=== PATIENT | female | born 1935 | race Two or more races ===

== ENCOUNTER 2017-05-22 06:19 | Observation (INO) | payer MEDICARE ==
--- NOTE | 2017-05-18 09:16 | Diagnostic Imaging Report ---
Indication: Dyspnea Comparison: 06/16/16 2 views of the chest obtained. No definite infiltrate or pulmonary vascular congestion identified. The heart is enlarged. The aorta is mildly enlarged consistent with atherosclerotic vascular disease. Surgical clips noted in the axilla bilaterally. The bones are osteopenic. Impression: No acute disease
[~2017-05-22] VITALS: Ht 157.5 cm; Wt 81.6 kg
[2017-05-22] VITALS (9 sets, daily range): BP systolic 114–160; BP diastolic 53–86
[~2017-05-22 06:19] MED LIST: NKM
[2017-05-22] MEDS ORDERED: Kenalog-10 5ml Inj ONE (07:11)
[2017-05-22] MEDS ORDERED: Lidocaine 1% Plain 30 ml INJ ONE (07:11)
[2017-05-22] MEDS ORDERED: Bacitracin 50000 Units Vial ONE (07:12)
[2017-05-22] MEDS ORDERED: Bupivacaine 0.25% Inj 30ml INJ ONE (07:12)
[2017-05-22] MEDS ORDERED: Lidocaine 1% 10mg/ml/Epi 0.005mg/ml 30ml vial INJ ONE (07:12)
--- NOTE | 2017-05-22 07:29 | Pre-Procedure Note/Attestation ---
Pre-Procedure Note/Attestation Complete Prior to Procedure Planned Procedure: left Procedure Narrative: Removal of hardware left ankle Indications for Procedure Pre-Operative Diagnosis: Painful hardware left ankle Attestation I attest that I discussed the nature of the procedure; its benefits; risks and complications; and alternatives (and the risks and benefits of such alternatives ), prior to the procedure, with the patient (or the patient's legal jewelry sales representative). I attest that, if there was a reasonable possibility of needing a blood transfusion, the patient (or the patient's legal jewelry sales representative) was given the [facility] standardized written summary, pursuant to the [place] Blood Safety Act ([place] Health and Safety Code # 1645, as amended). I attest that I re-evaluated the patient just prior to the surgery and that there has been no change in the patient's H&P, except as documented below: LEONA KAUR May 22, 2017 07:29
[2017-05-22] MEDS ORDERED: Propofol 10mg/ml 20ml IV ONE (07:30)
[2017-05-22] MEDS ORDERED: Ketorolac 30mg Inj ONE (07:30)
[2017-05-22] MEDS ORDERED: LR 1000ml ONE (07:30)
[2017-05-22] MEDS ORDERED: Sterile Water Irrig 1000ml IRRIG ONE (07:30)
[2017-05-22] MEDS ORDERED: Esmolol 100mg/10ml Inj ONE ×2 (07:30)
[2017-05-22] MEDS ORDERED: fentaNYL 100 mcg/2 mL IV ONE (07:30)
[2017-05-22] MEDS ORDERED: NS Irrig 1000ml ONE (07:30)
--- NOTE | 2017-05-22 07:31 | Anethesia Preoperative Eval ---
Anesthesia Pre-op PMH/ROS General Date of Evaluation: May 22, 2017 Time of Evaluation: 07:00 Anesthesiologist: Maribel ASA Score: ASA 3 Mallampati Score Class I : Soft palate, uvula, fauces, pillars visible Class II: Soft palate, uvula, fauces visible Class III: Soft palate, base of uvula visible Class IV: Only hard plate visible Mallampati Classification: Class II Surgeon: NATASHA Diagnosis: LEFT ANKLE HARDWARE Anesthesia History: none Family History: no anesthesia problems Allergies: Coded Allergies: CODEINE (Verified Allergy, Unknown, 05/22/17) DOES NOT REMEMBER REACTION PENICILLINS (Verified Allergy, Unknown, 12/31/15) Medications: see eMAR Past Medical History Cardiovascular: Reports: HTN Musculoskeletal/Integumentary: Reports: OA, other - BREAST CA Other: obesity Anesthesia Pre-op Phys. Exam Physician Exam Last Vital Signs Date Time Temp Pulse Resp B/P (MAP) Pulse Ox O2 Delivery O2 Flow Rate FiO2 05/22/17 06:43 97.6 76 20 142/86 96 Room Air Constitutional: NAD Cardiovascular: RRR Respiratory: CTA Airway Exam Mallampati Score: Class I ROM: full Anesthesia Pre-op A/P Risk Assessment & Plan Assessment: ASA 3 Plan: Carmelita Salter M.D. May 22, 2017 07:31
[2017-05-22] MEDS ORDERED: fentaNYL 100 mcg/2 mL IV PRN (07:45)
[2017-05-22] MEDS ORDERED: Hydromorphone 0.5mg/0.5ml inj IVP PRN (07:45)
[2017-05-22] MEDS ORDERED: Ketorolac 30mg Inj IV PRN (07:45)
--- NOTE | 2017-05-22 08:43 | Brief Operative Note ---
Immediate Post Operative Note Operative Note Pre-op Diagnosis: Painful hardware left ankle Procedure: Removal of hardware left ankle Post-op Diagnosis: same as pre-op Surgeon: Anatoliy Anesthesiologist: Maribel Anesthesia: MAC Specimen: yes Complications: none Condition: stable Fluids: saline Estimated Blood Loss: minimal Drains: none Implant(s) used?: No LEONA KAUR May 22, 2017 08:43
--- NOTE | 2017-05-22 09:19 | 48 Hour Post Anesthesia Eval ---
Post Anesthesia Evaluation Date of Evaluation: May 22, 2017 Time of Evaluation: 09:15 Blood Pressure Systolic: 119 Pulse Rate: 88 Respiratory Rate: 18 Temperature (Fahrenheit): 97.9 O2 Sat by Pulse Oximetry: 98 Airway: patent Nausea: No Vomiting: No Pain Intensity: 1 Hydration Status: adequate Mental Status/LOC: patient returned to baseline Follow-up care needed: N/A Carmelita López M.D. May 22, 2017 09:19
--- NOTE | 2017-05-22 09:21 | Immediate Post-Op Evaluation ---
Immediate Post-Op Evalulation Immediate Post-Op Evalulation Date of Evaluation: May 22, 2017 Time of Evaluation: 09:49 IV Fluids: 500 Blood Pressure Systolic: 139 Blood Pressure Diastolic: 64 Pulse Rate: 91 Respiratory Rate: 18 O2 Sat by Pulse Oximetry: 100 Temperature (Fahrenheit): 97.9 Pain Score (1-10): 1 Nausea: No Vomiting: No Complications none Patient Status: awake Hydration Status: adequate Drug: cefazolin 2 g Given Within 1 Hr of Incision: Yes Carmelita López M.D. May 22, 2017 09:21
[2017-05-22] MEDS ORDERED: traMADol 50mg tab ORAL ONE (13:30)
[2017-05-22] MEDS ORDERED: traMADol 50mg tab ORAL PRN (15:01)
[2017-05-22] MEDS ORDERED: Norco 5mg/325mg tab ORAL PRN ×2 (17:45)
[2017-05-22] MEDS ORDERED: Zolpidem 5mg tab ORAL PRN (17:45)
[2017-05-22] MEDS ORDERED: Mylanta II UD 30ml ORAL PRN (17:45)
--- NOTE | 2017-05-22 21:45 | History and Physical Report ---
DATE OF ADMISSION: 05/22/2017 PODIATRIC HISTORY AND PHYSICAL HISTORY OF PRESENT ILLNESS: This is an 82-year-old patient who is admitted today for an outpatient procedure of her left ankle. The patient has been complaining of pain for the past month from the left ankle. Evaluation at the office was performed couple weeks ago and it was noted that a hardware inserted into her left ankle was protruding and irritating the deep tissue. The patient was complaining of pain with touch over the medial aspect of the left rearfoot and ankle. The patient was consulted on removing the painful hardware. PAST MEDICAL HISTORY: Remarkable for arthritis, left arm radiculopathy, cataract, and left ankle fracture which was fixated with reduction and internal fixation back in 1979. MEDICATIONS: Cozaar, vitamin B2, Breo Ellipta inhaler. ALLERGIES: Penicillin and codeine. PODIATRIC PHYSICAL EXAMINATION: VASCULAR STATUS: Dorsalis pedis and posterior tibial arteries are faintly palpable measuring 1/4 bilaterally. The capillary filling time is less than 5 seconds to all digits bilaterally. Ankle edema is noted bilaterally, nonpitting. Homans sign is negative. Mild varicosities are noted bilateral lower extremities. NEUROLOGICAL EXAMINATION: Reflexes of Achilles and patellar are reduced measuring 1/4 bilaterally. Sensation, proprioception, and vibration sensation all intact bilaterally. Babinski is negative. Clonus is absent. MUSCULOSKELETAL EXAMINATION: Reveals reduced range of motion of bilateral ankle, subtalar midtarsal joints, joint range of motion at the level of the digits is also reduced. The left foot exhibits severe pes planovalgus with collapse of the arch and severe pronation on the left. Nonreducible hammertoe deformities digits 2 through 5 are noted bilaterally. Mild bunions are noted bilaterally. DERMATOLOGICAL EXAMINATION: Reveals scars, which are hypertrophic and keloid over the medial and lateral aspects of the left ankle and rearfoot. The medial scar is inflamed and very painful to palpation. Erythema is noted over the medial aspect of the ankle. All nails are present and mycotic bilaterally. Minimal ulceration is noted over the medial aspect of the left rearfoot. ASSESSMENT: Painful hardware status post fracture left ankle. PLAN: The patient is admitted today for an outpatient removal of left ankle hardware. Risks and complications were discussed with the patient and daughter. Postoperative instructions were given. Bharat Cope D.P.M. DR: SENA JOB#: [id number] CC:
[2017-05-22] MEDS ORDERED: LOSARTAN POTASS50 MG ORAL (22:29)
[2017-05-22] MEDS ORDERED: VITAMIN D400 INTLU ORAL (22:29)
[2017-05-22] MEDS ORDERED: BREO ELLIPTA 21 EACH IH (22:29)
[2017-05-23 04:00] VITALS: BP 158/73
[2017-05-23 07:48] VITALS: BP 155/74
[2017-05-23 08:00] VITALS: BP 135/59
[2017-05-23] MEDS ORDERED: Vitamin D 1000 IU Tab ORAL SCH (09:00)
[2017-05-23] MEDS ORDERED: Breo Ellipta 200/25mcg-14 dose INH SCH (09:00)
[2017-05-23] MEDS ORDERED: Losartan 50mg tab ORAL SCH (09:00)
--- NOTE | 2017-05-23 09:28 | General Progress Note ---
Assessment/Plan Assessment/Plan removal of hardware arthritis hypertension asthma obesity PLAN dc home tramadol for pain resume home meds home health care noted and reviewed d/w patient impression, plan, and exam edited and reviewed in detail care discussed with RN Subjective Allergies: Coded Allergies: CODEINE (Verified Allergy, Unknown, 05/22/17) DOES NOT REMEMBER REACTION Dairy (Verified Allergy, Unknown, 05/22/17) EGG (Verified Allergy, Unknown, 05/22/17) PENICILLINS (Verified Allergy, Unknown, 12/31/15) Subjective post op hardware removal has some pain Objective Last 24 Hour Vital Signs Date Time Temp Pulse Resp B/P (MAP) Pulse Ox O2 Delivery O2 Flow Rate FiO2 05/23/17 08:00 97.9 80 18 135/59 96 Room Air 05/23/17 07:48 98.4 80 18 155/74 96 Room Air 05/23/17 04:00 98.4 79 18 158/73 96 Room Air 05/22/17 23:26 98.4 91 20 136/67 95 Room Air 05/22/17 19:58 99.4 104 20 160/73 97 Room Air 05/22/17 18:51 98.6 96 20 155/76 95 Room Air 05/22/17 14:13 97.5 05/22/17 09:37 74 19 137/78 96 Room Air Height (Feet): 5 Height (Inches): 2.00 Weight (Pounds): 180 Objective WDWN NAD clear breath sounds bilaterally without rhonchi or wheeze [id number] without MRG NABS nontender no HSM no CC; some edema nonfocal unsteady dressed foot MARCOS BRANNON May 23, 2017 09:28
[2017-05-23] MEDS ORDERED: TRAMADOL HCL50 MG ORAL (10:08)
[2017-05-23] MEDS ORDERED: NORCO 5-325 TA1 EACH ORAL (10:08)
[2017-05-23 11:58] VITALS: BP 180/90
[2017-05-23 12:00] VITALS: BP 170/80
[2017-05-23 12:43] VITALS: BP 160/70
--- NOTE | 2017-05-26 10:15 | Operative Note - Dictated ---
DATE OF OPERATION: 05/22/2017 SURGEON: Bharat Cope M.D. ANESTHESIOLOGIST: Carmelita López M.D. ANESTHESIA: Local standby. PREOPERATIVE DIAGNOSIS: Painful hardware, left ankle. POSTOPERATIVE DIAGNOSIS: Painful hardware, left ankle. PROCEDURE PERFORMED: Removal of K-wire, left ankle. DESCRIPTION OF THE OPERATION: The patient was brought to the operating room and was placed on the operating room table in the supine position. IV sedation was administered by the anesthesiologist. Local anesthesia consisting of 0.25% Marcaine plain total of 20 mL was administered to the left ankle and ankle tourniquet was applied to the left lower extremity. The foot was prepped and draped in the usual sterile manner. An Esmarch was utilized to exsanguinate the blood and the left ankle tourniquet was inflated to 250 mmHg. Attention was then directed to the medial aspect of the left rearfoot where an approximately 3 cm linear skin incision was centered over an existing scar. The incision was deepened utilizing sharp and blunt dissection with care being taken to cauterize and ligate all bleeders. The incision was then dissected down to the distal aspect of the medial malleolus utilizing free air. The soft tissue and periosteum were freed from the distal aspect of the malleolus. At this point, a FluoroScan was utilized to identify the protruding K-wire and a hemostat was then utilized to clamp the K-wire and the K-wire was removed in total. The wound was then copiously flushed utilizing sterile saline. The subcutaneous tissue was then reapproximated utilizing 4-0 Vicryl in a buried knot type stitch. The skin was then reapproximated utilizing 4-0 nylon in a simple interrupted type stitch. The wound was then dressed utilizing an Adaptic 4 x 4 gauze and 3-inch Flash. The left ankle tourniquet was deflated and vascular supply was noted to all digits of the left foot. The patient tolerated the procedure well and left the operating room to recovery room with all vital signs stable. Bharat Cope D.P.M. DR: SENA JOB#: [id number] CC: EVY
== END 2017-05-23 14:00 | disposition home or self-care (01) ==
LOC: SUR 06:19 → 4E 06:20 → SUR 18:46 → 4E 05-23 14:00 → SUR 05-23 14:00
DX: T85.848A Pain due to other internal prosthetic devices, implants and grafts, initial encounter (principal); M19.90 Unspecified osteoarthritis, unspecified site; Z87.81 Personal history of (healed) traumatic fracture; Z88.0 Allergy status to penicillin; Z88.6 Allergy status to analgesic agent; T84.127A Displacement of internal fixation device of bone of left lower leg, initial encounter; L91.0 Hypertrophic scar; M20.42 Other hammer toe(s) (acquired), left foot; M20.41 Other hammer toe(s) (acquired), right foot; M21.072 Valgus deformity, not elsewhere classified, left ankle; M21.42 Flat foot [pes planus] (acquired), left foot; M21.6X2 Other acquired deformities of left foot; I83.93 Asymptomatic varicose veins of bilateral lower extremities; I10 Essential (primary) hypertension; J45.909 Unspecified asthma, uncomplicated; E66.9 Obesity, unspecified; Z68.32 Body mass index [BMI] 32.0-32.9, adult; G43.909 Migraine, unspecified, not intractable, without status migrainosus; Z85.3 Personal history of malignant neoplasm of breast; Z90.710 Acquired absence of both cervix and uterus; E56.9 Vitamin deficiency, unspecified; M54.12 Radiculopathy, cervical region; M25.569 Pain in unspecified knee; M71.20 Synovial cyst of popliteal space [Baker], unspecified knee; N28.9 Disorder of kidney and ureter, unspecified; R60.0 Localized edema
CPT/HCPCS: 20680; 71020; 97161; G0378; G8978; G8979; J0360; J0690; J1885; J2704; J3010; J3490; J7120

== ENCOUNTER 2017-08-04 10:49 | Inpatient (IN) | payer MEDICARE ==
[~2017-08-04] VITALS: Ht 157.5 cm; Wt 92.5 kg
[~2017-08-04 10:49] MED LIST changes: +BREO ELLIPTA 21 EACH IH; +LOSARTAN POTASS50 MG ORAL; +NORCO 5-325 TA1 EACH ORAL; +TRAMADOL HCL50 MG ORAL; +VITAMIN D400 INTLU ORAL
[2017-08-04] MEDS ORDERED: BREO ELLIPTA 11 EACH IH (13:29)
[2017-08-04] MEDS ORDERED: Albuterol ud Inhalation HHN PRN (15:30)
[2017-08-04 16:00] VITALS: BP 150/70
[2017-08-04] MEDS: guaiFENesin DM 100mg/5ml ORAL PRN (17:42)
[2017-08-04] MEDS ORDERED: TraZODone HCl 25 mg tablet ORAL PRN (19:00)
[2017-08-04 20:00] VITALS: BP 175/85
--- NOTE | 2017-08-04 20:01 | History & Physical ---
History and Physical History & Physicial 82 year old female with worsening lymphedema and hypertension out of control. Patient with worsening ability to walk and manage at home and now admitted for further observation, podiatry evaluation and trial at IV diuresis. Patient notes some shortness of breath, pain, difficulty with ambulation, pain, and cough. Patient with recent foot surgery. she has been failing to thrive and unable to care for herself at home. Patient care reviewed and discussed with the daughter. no fevers or chills recently. PMH foot surgery lymphedema arthritis Asthma hypertension ROS unsteady gait; uses walker MEDS/ALLERGIES: reviewed PHYSICAL EXAM Sp02 EP Interpretation: reviewed, normal General Appearance: normal inspection, well appearing, no apparent distress, alert Head: normocephalic, atraumatic Eyes: bilateral eye normal inspection ENT: normal ENT inspection, no angioedema, normal voice Neck: normal inspection, full range of motion, supple, no meningismus, carotid 2+ Respiratory: decreased breath sounds, wheezing scattered without rhonchi Cardiovascular #1: regular rate, rhythm, no murmur without MRG Gastrointestinal: non tender, soft, non-distended, no guarding, no rebound Musculoskeletal: gait/station normal, no calf tenderness, significant edema bilaterally Neurologic: alert, oriented x3, responsive, nonfocal but weak IMPRESSION lymphedema hypertension poorly controlled Asthma pain cough poor mobility PLAN check venous US podiatry evaluation check labs PT lasix diuresis resume home meds titrated BP control impression, plan, and exam edited and reviewed in detail care discussed with MARCOS SANCHEZ Aug 04, 2017 20:01
[2017-08-04] MEDS: Heparin 5000 units/ml inj SUBQ SCH (20:10)
[2017-08-05] VITALS (7 sets, daily range): BP systolic 140–184; BP diastolic 80–98
[2017-08-05 07:13] LABS: EOSINOPHILS % (AUTO) 4.4 % (0.0-3.0); MEAN CORPUSCULAR HEMOGLOBIN 27.9 PG (27.0-31.0); MEAN CORPUSCULAR HGB CONC 31.9 G/DL (32.0-36.0); MEAN CORPUSCULAR VOLUME 87 FL (80-99); MEAN PLATELET VOLUME 8.7 FL (6.5-10.1); MONOCYTES % (AUTO) 7.8 % (1.0-10.0); NEUTROPHILS % (AUTO) 63.8 % (45.0-75.0); PLATELET COUNT 165 K/UL (150-450); RED BLOOD COUNT 4.44 M/UL (4.20-5.40); RED CELL DISTRIBUTION WIDTH 12.5 % (11.6-14.8); WHITE BLOOD COUNT 6.8 K/UL (4.8-10.8)
[2017-08-05 07:18] LABS: ANION GAP 5 mmol/L (5-15); CALCIUM 8.4 MG/DL (8.5-10.1); CARBON DIOXIDE 32 MMOL/L (21-32); CHLORIDE 106 MMOL/L (98-107); POTASSIUM 3.2 MMOL/L (3.5-5.1); SODIUM 143 MMOL/L (136-145)
[2017-08-05] MEDS ORDERED: traMADol 50mg tab ORAL PRN (07:30)
--- NOTE | 2017-08-05 08:45 | General Progress Note ---
Assessment/Plan Assessment/Plan IMPRESSION lymphedema hypertension poorly controlled Asthma pain cough poor mobility PLAN check venous US podiatry evaluation called check labs PT lasix diuresis and monitor replace K resume home meds titrated BP control impression, plan, and exam edited and reviewed in detail care discussed with RN Subjective Allergies: Coded Allergies: CODEINE (Verified Allergy, Unknown, 05/22/17) DOES NOT REMEMBER REACTION Dairy (Verified Allergy, Unknown, 05/22/17) EGG (Verified Allergy, Unknown, 05/22/17) PENICILLINS (Verified Allergy, Unknown, 12/31/15) Subjective care noted refusing IV has pain and cough Objective Last 24 Hour Vital Signs Date Time Temp Pulse Resp B/P (MAP) Pulse Ox O2 Delivery O2 Flow Rate FiO2 08/05/17 08:00 98.1 76 16 164/84 98 Room Air 08/05/17 04:24 163/96 08/05/17 04:00 98.1 73 20 163/96 97 Room Air 08/05/17 00:32 182/92 08/05/17 00:00 98.2 79 20 182/90 95 Room Air 08/04/17 20:10 185/100 08/04/17 20:00 98.2 87 20 175/85 94 Room Air 08/04/17 16:00 98.2 86 19 150/70 97 Room Air Laboratory Tests 08/05/17 04:30: White Blood Count 6.8, Red Blood Count 4.44, Hemoglobin 12.4, Hematocrit 38.8, Mean Corpuscular Volume 87, Mean Corpuscular Hemoglobin 27.9, Mean Corpuscular Hemoglobin Concent 31.9L, Red Cell Distribution Width 12.5, Platelet Count 165, Mean Platelet Volume 8.7, Neutrophils (%) (Auto) 63.8, Lymphocytes (%) (Auto) 23.0, Monocytes (%) (Auto) 7.8, Eosinophils (%) (Auto) 4.4H, Basophils (%) (Auto ) 1.0, Sodium Level 143, Potassium Level 3.2L, Chloride Level 106, Carbon Dioxide Level 32, Anion Gap 5, Blood Urea Nitrogen 14, Creatinine 1.0, Estimat Glomerular Filtration Rate , Glucose Level 86, Calcium Level 8.4L Height (Feet): 5 Height (Inches): 2.00 Weight (Pounds): 204 Objective WDWN NAD clear breath sounds bilaterally without rhonchi or wheeze [id number] without MRG NABS nontender no HSM no CC significant edema skin changes noted mild confusion nonfocal MARCOS BRANNON Aug 05, 2017 08:45
[2017-08-05] MEDS: Losartan 50mg tab ORAL SCH (08:48)
[2017-08-05] MEDS: Vitamin D 1000 IU Tab ORAL SCH (08:49)
[2017-08-05] MEDS: Heparin 5000 units/ml inj SUBQ SCH ×2 (09:00→21:00)
--- NOTE | 2017-08-05 09:04 | Diagnostic Imaging Report ---
Indication: Cough Technique: One view of the chest Comparison: 05/15/2017 Findings: The heart is borderline enlarged. Lungs and pleural spaces are clear. Aorta is tortuous. There are degenerative spondylosis changes Impression: Borderline cardiomegaly No acute process
[2017-08-05] MEDS: Breo Ellipta 100/25mcg - 14 dose INH SCH (09:11)
--- NOTE | 2017-08-05 22:45 | Consultation ---
DATE OF CONSULTATION: 08/05/2017 PODIATRY CONSULTATION CONSULTING PHYSICIAN: Bharat Cope D.P.M. REFERRING PHYSICIAN: Malik Alexandra M.D. HISTORY OF PRESENT ILLNESS: This is an 82-year-old, patient that was admitted yesterday as an inpatient due to bilateral leg lymphedema, hypertension, and difficulty in ambulation. The patient is known to me for the past two years. She underwent left ankle surgery two months ago in order to remove a protruding K-wire from her left ankle following ankle surgery that she had in 1979. The surgery was uneventful and the patient healed well without any complications. PAST MEDICAL HISTORY: Arthritis, asthma, and hypertension. There is a history of left ankle fracture with open reduction and internal fixation performed during 1979. The patient underwent cataract surgery, right eye, in May of 2016. MEDICATIONS: Cozaar, Breo Ellipta, and vitamin D. ALLERGIES: The patient is allergic to penicillin and codeine. PODIATRIC PHYSICAL EXAMINATION: VASCULAR STUDIES: Dorsalis pedis and posterior tibial arteries are equally palpable measuring 2/4 bilaterally. The capillary filling time is less than 4 seconds to all digits bilaterally. The foot is warm to touch. Yolette's sign is questionably positive on the left calf more so than the right. The extremities exhibit mild varicosities bilaterally. NEUROLOGICAL EXAMINATION: Reflexes, Achilles and patellar are reduced measuring 1/4 bilaterally. Sensation, proprioception and vibration sensation are all intact bilaterally. Babinski is negative. Clonus is absent. Hyperesthesia is noted in bilateral lower extremity. MUSCULOSKELETAL EXAMINATION: Reveals bilateral reduced range of motion of the ankle, subtalar, and midtarsal joints. The range of motion at the level of the digits is also reduced. Crepitation is noted with ankle range of motion bilaterally. The foot exhibits bilateral severe pes planovalgus with arch collapse and severe pronation. Nonreducible hammertoe deformities of digits 2 through 5 are noted bilaterally. Mild bunions are also present bilaterally. The muscle tests reveal pain with supination of the left foot and ankle. The remaining musculoskeletal exam is unremarkable. DERMATOLOGICAL EXAMINATION: Reveals scars from left foot and ankle surgeries, which are hypertrophic and a hyperpigmented patch is noted over the medial aspect of the rear foot and left ankle. The palpation of the medial malleolus and medial rearfoot is evident for hypertrophic scar deep to the skin. All nails are present and mycotic bilaterally. No ulcers or any other skin lesions are present in bilateral lower extremities. RADIOGRAPHIC EXAMINATION: Reveals a plate with screws following left ankle open reduction and internal fixation over the lateral malleolus. The medial malleolus has 1 K-wire remaining following the surgery. No irritation secondary to fixation is noted from the hardware, left ankle. ASSESSMENT: 1. Edema/lymphedema, bilateral lower extremity to rule out DVT. 2. History of ankle fracture with open reduction and internal fixation with hardware irritation and subsequent single K-wire removal two months ago. 3. 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 4. Severe pes planovalgus bilaterally with complete arch collapse and posterior tibial dysfunction bilaterally. 5. Onychomycosis bilaterally. PLAN: 1. Venous duplex exam performed and results are pending. 2. Elevate bilateral lower extremity. 3. The patient will be fitted with bilateral ankle brace during outpatient visit in order to improve her gait. 4. Recommend physical therapy evaluation and gait training. 5. Debridement of mycotic nails. The patient refused the treatment today. Thank you, Dr. Alexandra, for allowing me to see this patient in consultation. Bharat Cope D.P.M. DR: MINA JOB#: [id number] CC:
[2017-08-06] VITALS: BP 175/86
[2017-08-06 04:00] VITALS: BP 150/85
--- NOTE | 2017-08-06 07:52 | General Progress Note ---
Assessment/Plan Assessment/Plan IMPRESSION lymphedema hypertension poorly controlled Asthma pain cough poor mobility PLAN podiatry appreciated check labs PT lasix diuresis and monitor replace K as needed maintain home meds titrated BP control d/w daughter as to dc planning impression, plan, and exam edited and reviewed in detail care discussed with RN Subjective Allergies: Coded Allergies: CODEINE (Verified Allergy, Unknown, 05/22/17) DOES NOT REMEMBER REACTION Dairy (Verified Allergy, Unknown, 05/22/17) EGG (Verified Allergy, Unknown, 05/22/17) PENICILLINS (Verified Allergy, Unknown, 12/31/15) Subjective care noted refusing IV but finally agreed swelling improved has pain and cough Objective Last 24 Hour Vital Signs Date Time Temp Pulse Resp B/P (MAP) Pulse Ox O2 Delivery O2 Flow Rate FiO2 08/06/17 04:00 98.2 83 18 150/85 100 Room Air 08/06/17 01:50 175/86 08/06/17 00:00 98.1 76 18 175/86 100 Room Air 08/05/17 21:29 71 16 Room Air 08/05/17 20:30 98.1 67 17 140/80 97 Room Air 08/05/17 17:30 152/93 08/05/17 17:23 83 18 100 Room Air 21 08/05/17 15:55 98.1 83 18 152/93 100 Room Air 08/05/17 13:30 98.0 71 16 156/98 94 Room Air 08/05/17 12:00 98.2 68 16 184/90 94 Room Air 08/05/17 11:57 186/90 08/05/17 09:12 77 18 96 Room Air 08/05/17 09:12 76 18 96 Room Air 08/05/17 08:48 164/84 08/05/17 08:00 98.1 76 16 164/84 98 Room Air Height (Feet): 5 Height (Inches): 2.00 Weight (Pounds): 204 Objective WDWN NAD clear breath sounds bilaterally without rhonchi or wheeze [id number] without MRG NABS nontender no HSM no CC significant edema skin changes noted mild confusion nonfocal MARCOS BRANNON Aug 06, 2017 07:52
[2017-08-06 08:15] VITALS: BP 142/71
[2017-08-06] MEDS: Heparin 5000 units/ml inj SUBQ SCH ×2 (09:00→20:35)
[2017-08-06] MEDS: Breo Ellipta 100/25mcg - 14 dose INH SCH (09:13)
[2017-08-06] MEDS: Vitamin D 1000 IU Tab ORAL SCH (09:49)
[2017-08-06] MEDS: Losartan 50mg tab ORAL SCH (09:50)
[2017-08-06 12:15] VITALS: BP 142/92
[2017-08-06 13:13] LABS: ANION GAP 10 mmol/L (5-15); CALCIUM 9.3 MG/DL (8.5-10.1); CARBON DIOXIDE 30 MMOL/L (21-32); CHLORIDE 103 MMOL/L (98-107); CREATININE 1.1 MG/DL (0.55-1.30); POTASSIUM 3.6 MMOL/L (3.5-5.1); SODIUM 143 MMOL/L (136-145)
[2017-08-06 16:00] VITALS: BP 140/81
[2017-08-06] MEDS: guaiFENesin DM 100mg/5ml ORAL PRN (16:17)
--- NOTE | 2017-08-06 16:49 | Diagnostic Imaging Report ---
APPROVED REPORT CPT Code: 76495 Present Symptoms Lower Extremity Pain: Bilateral Lower Extremity Edema: Bilateral Comments: Hx lymphedema. Technically difficult, limited study due to vessel depth (mid to distal thigh) and calf edema. BILATERAL: Imaging reveals a patent deep venous system bilaterally. There is no evidence of thrombus within the femoral or popliteal segments. The greater saphenous veins are also within normal limits. Doppler indicates normal spontaneous flow within these segments. The calf veins were not visualized bilaterally. Incidental finding: Hardy's cyst in the right popliteal fossa measuring 4.9 cm x 1.7 cm x 2.6 cm.
[2017-08-06 20:00] VITALS: BP 137/87
[2017-08-07] VITALS: BP 145/89
[2017-08-07 04:30] VITALS: BP 168/88
[2017-08-07 08:15] VITALS: BP 136/56
[2017-08-07] MEDS: Losartan 50mg tab ORAL SCH (08:43)
[2017-08-07] MEDS: Vitamin D 1000 IU Tab ORAL SCH (08:43)
[2017-08-07] MEDS: Heparin 5000 units/ml inj SUBQ SCH ×2 (08:46→09:00)
--- NOTE | 2017-08-07 09:04 | General Progress Note ---
Assessment/Plan Assessment/Plan IMPRESSION lymphedema hypertension poorly controlled Asthma pain cough poor mobility PLAN podiatry appreciated PT lasix diuresis and monitor after discharge replace K as needed maintain home meds titrated BP control d/w daughter and agrees to dc impression, plan, and exam edited and reviewed in detail care discussed with RN Subjective Allergies: Coded Allergies: CODEINE (Verified Allergy, Unknown, 05/22/17) DOES NOT REMEMBER REACTION Dairy (Verified Allergy, Unknown, 05/22/17) EGG (Verified Allergy, Unknown, 05/22/17) PENICILLINS (Verified Allergy, Unknown, 12/31/15) Subjective care noted agreed to snf swelling improved Objective Last 24 Hour Vital Signs Date Time Temp Pulse Resp B/P (MAP) Pulse Ox O2 Delivery O2 Flow Rate FiO2 08/07/17 08:43 136/56 08/07/17 08:15 98.2 64 21 136/56 97 Room Air 08/07/17 05:09 168/88 08/07/17 04:30 98.7 69 20 168/88 96 Room Air 08/07/17 00:00 97.7 79 18 145/89 97 Room Air 08/06/17 20:00 97.3 82 18 137/87 99 Room Air 08/06/17 19:50 87 18 Room Air 08/06/17 16:00 98.0 86 19 140/81 98 Room Air 08/06/17 12:15 97.5 88 21 142/92 96 Room Air 08/06/17 09:50 142/71 08/06/17 09:19 83 18 Room Air 21 08/06/17 09:18 83 18 97 Room Air 08/06/17 09:17 83 18 97 Room Air 21 Laboratory Tests 08/06/17 12:00: Sodium Level 143, Potassium Level 3.6, Chloride Level 103, Carbon Dioxide Level 30, Anion Gap 10, Blood Urea Nitrogen 15, Creatinine 1.1, Estimat Glomerular Filtration Rate , Glucose Level 99, Calcium Level 9.3 Height (Feet): 5 Height (Inches): 2.00 Weight (Pounds): 204 Objective WDWN NAD clear breath sounds bilaterally without rhonchi or wheeze [id number] without MRG NABS nontender no HSM no CC significant edema skin changes noted mild confusion nonfocal MARCOS BRANNON Aug 07, 2017 09:04
[2017-08-07] MEDS: Breo Ellipta 100/25mcg - 14 dose INH SCH (09:22)
[2017-08-07] MEDS ORDERED: FUROSEMIDE40 MG ORAL (12:11)
[2017-08-07] MEDS ORDERED: TRAMADOL HCL50 MG ORAL (12:12)
[2017-08-07 12:16] VITALS: BP 151/90
[2017-08-07] MEDS ORDERED: ROBITUSSIN DM5 ML ORAL ×2 (12:18→12:22)
[2017-08-07] MEDS ORDERED: ACETAMINOPHEN325 M1 ORAL (12:22)
[2017-08-07 12:34] VITALS: BP 156/86
--- NOTE | 2017-08-10 13:09 | Discharge Summary ---
Discharge Summary Hospital Course Date of Admission Aug 04, 2017 at 12:57 Date of Discharge Aug 07, 2017 at 14:55 Admitting Diagnosis HPI Tabatha Serrato is a 82 year old female who was admitted on Aug 04, 2017 at 12:57 for Cellulitis,Lymphedema Hospital Course dc summary #[id number] Discharge Medications Continued Medications: Fluticasone/Vilanterol (Breo Ellipta 100-25 Mcg INH) 1 Each Blst.w.dev 1 EACH IH DAILY, EACH Furosemide* (Lasix*) 40 Mg Tablet 40 MG ORAL DAILY, TAB Guaifenesin/Dextromethorphan (Guaifenesin Dm Syrup) 5 Ml Syrup 15 ML ORAL EVERY 6 HOURS for For Cough, SYR Losartan Potassium* (Losartan Potassium*) 50 Mg Tablet 50 MG ORAL DAILY, TAB Tramadol Hcl* (Ultram*) 50 Mg Tablet 50 MG ORAL Q6H PRN for For Pain, #30 TAB 0 Refills Vitamin D (Vitamin D3) 400 Unit Tablet 1000 UNITS ORAL DAILY, TAB Discharge Condition Upon Discharge: stable Discharge Disposition Patient was discharged to SNF/Subacute Facility(03) Discharge Diagnoses: Discharge Instructions Discharge Instructions Special Instructions I have been assigned to complete a D/C Summary on this account. I was not involved in the patient management Priyanka Velazquez NP ([place]) Aug 10, 2017 13:09
--- NOTE | 2017-08-10 18:00 | Discharge Summary 2 SIG ---
DATE OF ADMISSION: 08/04/2017 DATE OF DISCHARGE: 08/07/2017 REASON FOR ADMISSION: 82-year-old female was brought to the hospital for evaluation due to worsening lymphedema bilateral lower extremities and hypertension out of control. HOSPITAL COURSE: The patient admitted. A venous duplex of bilateral extremities revealed no acute DVT. Podiatry consult was requested. Psychology Technician recommended elevate bilateral lower extremities. According to home paraprofessional, the patient will be fitted with bilateral ankle brace during outpatient visit to improve the gait. Psychology Technician recommended physical therapy evaluation and gait training. The patient declined debridement of mycotic nails at this time. The patient was on diuretic therapy. Renal parameters, electrolytes, and intake and output were closely monitored. Potassium was replaced. Home medication were resumed. Blood pressure regimen titrated. The patient was on ARB and clonidine on as needed basis. Initial blood pressure- 185/100. Prior to discharge, blood pressure stabilized. Pain management was provided. Supplemental oxygen provided as needed to keep saturation above 92%. Pulse oximetry was stable on room air. Nebulizing treatment was on standby as needed. The patient had coughing. CXR revealed no acute cardiopulmonary pathology, borderline cardiomegaly. Antitussive were provided as needed. The patient was working with physical therapy. The patient was stable for discharge to long-term facility. FINAL DIAGNOSES: 1. Lymphedema bilateral lower extremities . 2. Hypertensive urgency. 3. Asthma. 4. Cough. 5. Poor mobility. 6. Hypokalemia. 7. History of ankle fracture with open reduction and internal fixation. 8. 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 9. Severe pes planovalgus bilaterally with complete arch collapse and posterior tibial dysfunction bilaterally. 10. Bilateral onychomycosis. DISCHARGE MEDICATIONS: See medication reconciliation list. DISCHARGE INSTRUCTIONS: The patient was discharged to long-term facility. Follow up with emdical doctor at the facility. Follow up with home paraprofessional for bilateral ankle brace fitting. Malik Alexandra M.D. I have been assigned to dictate discharge summary on this account and I was not involved in the patient's management. Priyanka Velazquez N.P. ([place]) DR: UMAIR JOB#: [id number] CC: EVY
== END 2017-08-07 14:55 | DRG 607 ==
LOC: 4E 12:57
DX: I89.0 Lymphedema, not elsewhere classified (principal); B35.1 Tinea unguium; J45.909 Unspecified asthma, uncomplicated; M19.071 Primary osteoarthritis, right ankle and foot; E87.6 Hypokalemia; M19.072 Primary osteoarthritis, left ankle and foot; M19.90 Unspecified osteoarthritis, unspecified site; I16.0 Hypertensive urgency; M21.42 Flat foot [pes planus] (acquired), left foot; M21.41 Flat foot [pes planus] (acquired), right foot; Z88.6 Allergy status to analgesic agent; Z88.0 Allergy status to penicillin; Z74.09 Other reduced mobility; Z91.012 Allergy to eggs; Z91.011 Allergy to milk products
CPT/HCPCS: 36415; 71010; 80048; 83880; 85025; 93970; 94640; 94664; J8499